=== PATIENT | female | born 1985 | race Caucasian/White ===

== ENCOUNTER 2022-04-03 06:54 | Day surgery (SDC) | payer OTHER ==
[~2022-04-03] VITALS: Ht 160 cm; Wt 132.9 kg
[2022-04-03] MEDS ORDERED: MIDAZOLAM 5 MG/5 ML VIAL ONE (08:25)
[2022-04-03] MEDS ORDERED: diphenhydrAMINE 50 MG/ML VIAL ONE (08:25)
[2022-04-03] MEDS: MIDAZOLAM 5 MG/5 ML VIAL IV ONE (08:33)
[2022-04-03] MEDS: diphenhydrAMINE 50 MG/ML VIAL IVP ONE (08:34)
== END 2022-04-03 09:32 | disposition home or self-care (01) ==
LOC: MDS 06:54 → MMU 06:55 → MDS 09:32
PROVIDERS: ATTEND Internal Medicine Gastroenterology
DX: K21.9 Gastro-esophageal reflux disease without esophagitis (principal); K58.1 Irritable bowel syndrome with constipation; R10.13 Epigastric pain; E78.5 Hyperlipidemia, unspecified; J45.909 Unspecified asthma, uncomplicated; Z86.73 Personal history of transient ischemic attack (TIA), and cerebral infarction without residual deficits; Z88.1 Allergy status to other antibiotic agents; Z88.5 Allergy status to narcotic agent; E66.9 Obesity, unspecified; Z68.43 Body mass index [BMI] 50.0-59.9, adult; F41.9 Anxiety disorder, unspecified; G43.909 Migraine, unspecified, not intractable, without status migrainosus; F32.9 Major depressive disorder, single episode, unspecified; I48.91 Unspecified atrial fibrillation; Z79.01 Long term (current) use of anticoagulants; Z79.899 Other long term (current) drug therapy; M06.9 Rheumatoid arthritis, unspecified; Z53.8 Procedure and treatment not carried out for other reasons
CPT/HCPCS: J1200; J2250